=== PATIENT | male | born 1990 | race Caucasian/White ===

== ENCOUNTER 2017-08-08 16:40 | Emergency (ER) | payer SELFPAY, OTHER ==
[2017-08-08] MEDS: DIPHTH/TET/ACEL PERTUSS (ADULT) 0.5 ML VIAL IM* (19:13)
== END 2017-08-08 20:00 | disposition left against medical advice (07) ==
LOC: FTE 16:40
DX: S61.211A Laceration without foreign body of left index finger without damage to nail, initial encounter (principal); W26.8XXA Contact with other sharp object(s), not elsewhere classified, initial encounter; Y92.9 Unspecified place or not applicable; Z23 Encounter for immunization
CPT/HCPCS: 90471; 90715; 99283-25

== ENCOUNTER 2017-08-10 11:08 | Emergency (ER) | payer BC | END 2017-08-10 12:33 | disposition home or self-care (01) | LOC: E/R 11:08 | DX: Z48.00 Encounter for change or removal of nonsurgical wound dressing (principal) | CPT/HCPCS: 99283 ==